=== PATIENT | male | born 1955 | race Caucasian/White ===

== ENCOUNTER → 2018-05-29 | Outpatient (CLI) | payer OTHER | LOC: M.ULTRA 14:30 | DX: N28.9 Disorder of kidney and ureter, unspecified (principal); R79.89 Other specified abnormal findings of blood chemistry ==

== ENCOUNTER → 2018-07-24 | Outpatient (CLI) | payer OTHER | LOC: M.ULTRA 10:30 | DX: E21.3 Hyperparathyroidism, unspecified (principal); E21.5 Disorder of parathyroid gland, unspecified ==

== ENCOUNTER → 2018-07-31 | Outpatient (CLI) | payer OTHER | LOC: M.RAD 12:29 | DX: M17.11 Unilateral primary osteoarthritis, right knee (principal); M25.561 Pain in right knee; G89.29 Other chronic pain ==

== ENCOUNTER → 2018-08-07 | Outpatient (CLI) | payer OTHER | LOC: M.RAD 07:16 | DX: M25.561 Pain in right knee (principal); M17.11 Unilateral primary osteoarthritis, right knee ==

== ENCOUNTER → 2018-08-28 | Outpatient (CLI) | payer OTHER | LOC: M.RAD 09:21 | DX: Z01.818 Encounter for other preprocedural examination (principal); I51.7 Cardiomegaly; M47.814 Spondylosis without myelopathy or radiculopathy, thoracic region ==

== ENCOUNTER → 2019-01-07 | Outpatient (CLI) | payer OTHER | LOC: M.MRI 07:24 | DX: M75.102 Unspecified rotator cuff tear or rupture of left shoulder, not specified as traumatic (principal); S43.492A Other sprain of left shoulder joint, initial encounter; S46.912A Strain of unspecified muscle, fascia and tendon at shoulder and upper arm level, left arm, initial encounter; M19.012 Primary osteoarthritis, left shoulder; M25.412 Effusion, left shoulder; M25.712 Osteophyte, left shoulder; M25.812 Other specified joint disorders, left shoulder; M62.522 Muscle wasting and atrophy, not elsewhere classified, left upper arm; X58.XXXA Exposure to other specified factors, initial encounter; Y93.89 Activity, other specified; Y92.89 Other specified places as the place of occurrence of the external cause; Y99.8 Other external cause status ==

== ENCOUNTER → 2020-01-07 | Outpatient (CLI) | payer OTHER | LOC: M.RAD 10:34 | DX: R05 Cough (principal); R06.02 Shortness of breath; I51.7 Cardiomegaly; I77.810 Thoracic aortic ectasia; M47.814 Spondylosis without myelopathy or radiculopathy, thoracic region; M41.84 Other forms of scoliosis, thoracic region ==

== ENCOUNTER → 2020-04-10 | Outpatient (CLI) | payer OTHER ==
[~2020-04-10] MED LIST: COLACE100 MG PO; COZAAR 25 MG TA25 M2 PO; FLONASE 0.05%50 MCG NARES; KEFLEX500 M1 PO; OXYCODONE HCL 55 MG PO; XARELTO10 M1 PO
== END ==
LOC: M.RAD 16:30
PROVIDERS: ATTEND Registered Nurse Diabetes Educator
DX: J84.10 Pulmonary fibrosis, unspecified (principal); J98.4 Other disorders of lung

== ENCOUNTER 2020-04-27 16:27 | Inpatient (IN) | payer OTHER ==
[~2020-04-27] VITALS: Ht 180.3 cm; Wt 125.2 kg
[2020-04-27 16:33] VITALS: BP 156/106
[2020-04-27] MEDS ORDERED: XARELTO10 M1 PO (16:40)
[2020-04-27] MEDS ORDERED: COZAAR 25 MG TA25 M2 PO (16:40)
[2020-04-27] MEDS ORDERED: FLONASE 0.05%50 MCG NARES (16:41)
[2020-04-27] MEDS ORDERED: COLACE100 MG PO (16:41)
[2020-04-27 20:20] VITALS: BP 144/71
[2020-04-27 21:40] VITALS: BP 173/103
[2020-04-28] VITALS (8 sets, daily range): BP systolic 114–184; BP diastolic 72–109
[2020-04-28 05:09] LABS: HEMATOCRIT 37.2 % (42.0-52.0); HEMOGLOBIN 12.8 gm/dL (14.0-18.0); MCH 30.3 pg (26.0-34.0); MCHC 34.4 g/dL (28.0-37.0); MCV 87.9 fL (80.0-100.0); RBC 4.24 mil/uL (4.50-6.00); RDW-CV 14.6 % (10.5-14.5); WBC 9.6 thou/uL (4.0-11.0)
[2020-04-28 05:27] LABS: CALCIUM 8.8 mg/dL (8.5-10.1); CREATININE 1.4 mg/dL (0.6-1.3); MAGNESIUM 1.7 mg/dL (1.8-2.4); PHOSPHORUS* 2.2 mg/dL (2.5-4.9); POTASSIUM 3.4 mmol/L (3.5-5.1)
[2020-04-29] VITALS: BP 158/101
[2020-04-29 05:19] LABS: HEMATOCRIT 37.6 % (42.0-52.0); HEMOGLOBIN 12.9 gm/dL (14.0-18.0); MCH 30.4 pg (26.0-34.0); MCHC 34.3 g/dL (28.0-37.0); MCV 88.8 fL (80.0-100.0); MPV 8.8 fl. (7.2-11.1); RBC 4.24 mil/uL (4.50-6.00); RDW-CV 15.2 % (10.5-14.5); WBC 9.2 thou/uL (4.0-11.0)
[2020-04-29 05:30] LABS: CALCIUM 8.9 mg/dL (8.5-10.1); CREATININE 1.6 mg/dL (0.6-1.3); POTASSIUM 3.8 mmol/L (3.5-5.1)
[2020-04-29 08:00] VITALS: BP 176/105
--- NOTE | 2020-04-29 11:43 | EKG ---
[place] [address] ELECTROCARDIOGRAM REPORT Name: SEAN MATHIS Room: [address] ADM IN M.R.#: [id number] Admission: 04/27/20 Attend Phys: Billy Santoyo Discharge: Date of : 53 Date of Service: 04/29/20 0945 Report #: [id number] THIS REPORT FOR: //name// [facility] Test Date: 2020-04-29 Test Time: 09:45:53 Pat Name: SEAN MATHIS Department: Room: [address] Gender: M [employer]: BARBARA : 1955 Requested By: Billy Santoyo Order Number: [id number] Darlene MD: Vance Ruth Measurements Intervals [place] Rate: 81 P: RI: QRS: 65 QRSD: 102 T: 41 QT: 390 QTc: 453 Interpretive Statements Atrial fibrillation Multiple ventricular premature complexes Low voltage, extremity leads Compared to ECG 06/09/2016 08:51:08 Ventricular premature complex(es) now present Electronically Signed On 04-29-2020 11:42:59 CDT by Vance Ruth [email or web address] <ELECTRONICALLY SIGNED> By: Vance Ruth MD, [facility] 04/29/20 1142 0945 0945 Vance Ruth MD, [facility] /EPI
[2020-04-29 16:00] VITALS: BP 142/88
[2020-04-29 21:00] VITALS: BP 150/99
[2020-04-30 00:10] VITALS: BP 150/100
[2020-04-30 04:16] LABS: HEMOGLOBIN 12.5 gm/dL (14.0-18.0); MCH 29.8 pg (26.0-34.0); MCHC 33.8 g/dL (28.0-37.0); MCV 88.4 fL (80.0-100.0); MPV 7.9 fl. (7.2-11.1); RBC 4.19 mil/uL (4.50-6.00); RDW-CV 14.7 % (10.5-14.5); WBC 11.4 thou/uL (4.0-11.0)
[2020-04-30 04:25] LABS: CREATININE 1.8 mg/dL (0.6-1.3); MAGNESIUM 2.1 mg/dL (1.8-2.4); PHOSPHORUS* 3.2 mg/dL (2.5-4.9)
[2020-04-30 08:23] VITALS: BP 161/105
[2020-04-30 10:33] VITALS: BP 161/105
[2020-04-30] MEDS ORDERED: OXYCODONE HCL 55 MG PO (10:52)
[2020-04-30] MEDS ORDERED: KEFLEX500 M1 PO (10:53)
[2020-04-30 10:57] VITALS: BP 161/105
[2020-04-30 12:54] VITALS: BP 161/105
--- NOTE | 2020-05-01 10:09 | OP ---
[address] [address] OPERATIVE REPORT Name: SEAN MATHIS Room: [address] IN M.R.#: [id number] Admission: 04/27/20 Attend Phys: Diamond Irby Discharge: 04/30/20 Date of : 53 Report #: [id number] THIS REPORT FOR: //name// cc: Dorothy Pastrana Tammy RNP ~ THIS REPORT FOR: //name// CC: Billy Pastrana DATE OF SERVICE: 04/29/2020 PREOPERATIVE DIAGNOSIS: Left scrotal hematoma, possible infection. POSTOPERATIVE DIAGNOSIS: Left scrotal seroma. SURGEON: Billy Santoyo DO ORTHOTIC/PROSTHETIC PRACTITIONER: Joana Shah DO. PROCEDURE: Scrotal seroma exploration and evacuation with drain placement. INDICATIONS: The patient is a 65-year-old male who is status post giant left inguinal hernia repair mesh 12 days ago. The patient presented to the office 10 days postoperatively with complaints of left scrotal swelling, erythema, warmth, and discomfort and underwent a CT abdomen and pelvis, which revealed a left scrotal fluid collection that was loculated. He was admitted for antibiotics and observation. The patient did not get relief with antibiotics and opted for surgical drainage. Risks and benefits of surgery were explained in detail. Risks of bleeding, infection, damage to nearby structures including the left testicle and cord structures were explained in detail. DESCRIPTION OF PROCEDURE: The patient was taken to the operating theater and placed in the supine position. Bilateral SCDs were placed and preoperative antibiotics had been given. General anesthesia was induced without complication. The patient's scrotum and left groin were prepped and draped in the standard sterile fashion. Timeout was performed and all were in agreement. The left scrotum was large, edematous, erythematous and indurated. A 3cm lateral scrotal incision was made using a #15 blade scalpel. Dissection was carried down through the skin and dartos muscle and fascia using electrocautery. The cremasteric fasica and sperm[place] [address] OPERATIVE REPORT Name: SEAN MATHIS Room: [address] [place] [facility].#: [id number] Admission: 04/27/20 Attend Phys: Diamond Irby Discharge: 04/30/20 Date of : 53 Report #: [id number] two hemostats and inciced using metzenbaum scissors. Once the scrotal cavity was entered, there was a melo of serous fluid. The scrotal cavity was explored with a finger and no loculations, purulence, or hematoma was appreciated. There were no signs of infection. The fluid was cultured. Next, the testicle and cord structures were bulging with fluid so the tunica vaginalis was opened carefully using Metzenbaum scissors to evacuate the cord fluid. The cord fluid was successfully evacuated. This was serous in character. Next, the tunica vaginalis was plicated using 3-0 Vicryl at 5 mm intervals in an interrupted fashion. A 9-Upper Sorbian BERNABE drain was then placed into the scrotal cavity. The drain was placed to exit several centimeters superior to the incision. This was secured using a 2-0 nylon stitch. Next, the scrotal fascial layers were closed in a layered fashion using 3-0 vicryl inturrputed sutures. The skin was then closed using interrupted 3-0 nylon sutures. The site was then dressed using Telfa, gauze, and tape. This concluded the procedure. All sponge, needle and instrument counts were correct x 2. COMPLICATIONS: None. FINDINGS: Left scrotal seroma, left testicular cord seroma. ESTIMATED BLOOD LOSS: 10 mL DRAIN: A 9-Upper Sorbian BERNABE. ANESTHESIA: General endotracheal anesthesia. DISPOSITION: The patient was extubated successfully in the operating theater and taken to PACU in stable condition. <ELECTRONICALLY SIGNED> By: Billy Santoyo DO 05/01/20 1009 02 29Billy Santoyo DO /nt
== END 2020-04-30 13:35 | disposition home or self-care (01) | DRG 603 ==
LOC: M.ERS 16:27 → M.TBA-ER 17:06 → M.ORTHSURG 17:06
PROVIDERS: ADMIT Surgery; ATTEND Surgery
PROC: 0V9500Z Drainage of Scrotum with Drainage Device, Open Approach (ICD-10-PCS; principal; 2020-04-29)
PROC: 0VJ80ZZ Inspection of Scrotum and Tunica Vaginalis, Open Approach (ICD-10-PCS; principal; 2020-04-29)
DX: L02.211 Cutaneous abscess of abdominal wall (principal); N49.2 Inflammatory disorders of scrotum; S30.22XA Contusion of scrotum and testes, initial encounter; Z96.653 Presence of artificial knee joint, bilateral; I10 Essential (primary) hypertension; I48.91 Unspecified atrial fibrillation; M10.9 Gout, unspecified; Z20.828 Contact with and (suspected) exposure to other viral communicable diseases; Z79.899 Other long term (current) drug therapy; X58.XXXA Exposure to other specified factors, initial encounter; Y93.89 Activity, other specified; Y92.89 Other specified places as the place of occurrence of the external cause; Y99.8 Other external cause status

== ENCOUNTER → 2020-04-27 | Outpatient (CLI) | payer OTHER ==
[2020-04-27 14:44] LABS: CREATININE 1.7 mg/dL (0.6-1.3)
== END ==
LOC: M.LAB 12:30 → M.CT 12:30 → M.LAB 14:12
PROVIDERS: ATTEND Surgery
DX: N43.2 Other hydrocele (principal); R10.32 Left lower quadrant pain; K76.89 Other specified diseases of liver; M43.16 Spondylolisthesis, lumbar region; M47.899 Other spondylosis, site unspecified; R60.9 Edema, unspecified

== ENCOUNTER → 2021-10-28 | Outpatient (CLI) | payer OTHER | LOC: M.CT 09:00 | PROVIDERS: ATTEND Registered Nurse Diabetes Educator | DX: R91.1 Solitary pulmonary nodule (principal); K76.89 Other specified diseases of liver ==